=== PATIENT | female | born 1940 | race Caucasian/White ===

== ENCOUNTER 2018-08-27 07:55 | Outpatient (CLI) | payer MEDICARE ==
[2018-08-27] MEDS ORDERED: ADENOSINE 60 MG/20 ML VIAL ONE (10:52)
--- NOTE | 2018-08-27 13:23 | NM ---
CARDIAC SPECT: HISTORY: A 78-year-old female with chest pain, angina, coronary artery disease, hypertension, and diabetes. TECHNIQUE: A myocardial perfusion scan was performed using the single isotope one day protocol with technetium 9 9m sestamibi, and 10 millicuries was injected intravenously for the rest exam, followed by 28 millicu zane for the stress study. Pharmacologic stress with adenosine was monitored and interpreted by Dr. Benson. FINDINGS: Homogeneous tracer distribution is seen in the myocardial segments on stress and rest images without fixed or reversible defects. GATED SPECT LVEF: 71% WALL MOTION EXAM: Normal. IMPRESSION: Normal myocardial perfusion scan. POS: NANCY
== END 2018-08-27 07:56 | disposition home or self-care (01) ==
LOC: NM 07:55
PROVIDERS: ATTEND Family Medicine
DX: I20.9 Angina pectoris, unspecified (principal)
CPT/HCPCS: 78452; 93017; A9500; J0153

== ENCOUNTER 2019-03-26 06:03 | Day surgery (SDC) | payer MEDICARE ==
[2019-03-25 13:05] VITALS: BMI 28.1
[2019-03-26] MEDS ORDERED: Diazepam 5 MG TAB ONE (07:48)
[2019-03-26] MEDS ORDERED: Ondansetron PF 4 MG/2 ML Vial ONE (08:16)
[2019-03-26] MEDS ORDERED: Heparin 10,000 UNITS/1 ML VIAL ONE (08:16)
[2019-03-26] MEDS ORDERED: Verapamil 5 MG/2 ML VIAL ONE (08:16)
[2019-03-26] MEDS ORDERED: Nitroglycerin 100MG/250ML BOT 250 ML ONE (08:17)
[2019-03-26] MEDS ORDERED: Iopamidol 370 76% 100 ML VIAL ONE (08:41)
[2019-03-26] MEDS ORDERED: Fentanyl 100 MCG/2 ML VIAL ONE (09:02)
[2019-03-26] MEDS ORDERED: Midazolam HCl 2 mg/2 ml Vial ONE (09:02)
== END 2019-03-26 11:45 | disposition home or self-care (01) ==
LOC: CCL 06:03
PROVIDERS: ATTEND Internal Medicine Cardiovascular Disease
PROC: 4A023N7 Measurement of Cardiac Sampling and Pressure, Left Heart, Percutaneous Approach (ICD-10-PCS; principal; 2019-03-26)
PROC: B2111ZZ Fluoroscopy of Multiple Coronary Arteries using Low Osmolar Contrast (ICD-10-PCS; 2019-03-26)
DX: R07.89 Other chest pain (principal); E11.9 Type 2 diabetes mellitus without complications; I48.0 Paroxysmal atrial fibrillation; E07.9 Disorder of thyroid, unspecified; D68.9 Coagulation defect, unspecified; M79.604 Pain in right leg; Z79.82 Long term (current) use of aspirin; Z79.84 Long term (current) use of oral hypoglycemic drugs; Z79.899 Other long term (current) drug therapy
CPT/HCPCS: 93458; 99152; 99153; C1769; J1644; J2250; J2405; J3010; Q9967

== ENCOUNTER 2020-10-02 11:17 | Emergency (ER) | payer MEDICARE ==
--- NOTE | 2020-10-02 13:27 | CT ---
Exam: Head CT without contrast HISTORY: Fall. Pain. Dizziness and syncope. COMPARISON: none FINDINGS: Hemorrhage: No intraparenchymal hemorrhage or extra-axial hematoma. Brain parenchyma: Cortical anderson-white matter differentiation is preserved. No mass effect or midline shift. Basilar cisterns are patent. Ventricular system: Ventricles and sulci are patent and symmetric. Calvarium: Intact. Sinuses and mastoid air cells: Adequate aeration. IMPRESSION: No intracranial post traumatic sequelae.
[2020-10-02] MEDS ORDERED: Morphine 4 MG/ML VIAL ONE (13:53)
--- NOTE | 2020-10-02 14:55 | CT ---
CT CERVICAL SPINE PERFORMED WITHOUT CONTRAST ENHANCEMENT: Date: 10/02/2020 HISTORY: Neck pain status post fall. FINDINGS: The vertebral bodies are normal in height. Degenerative change is seen along the course of the spine. Disc narrowing is particularly pronounced at C5-6. The facets are in normal alignment. Bones appear demineralized. There are areas of lucency within several of the vertebral bodies. This is favored to be on the basis of osteoporosis rather than lytic bone lesion. At the C4-5 level, the canal is mildly stenotic and there is mild right-sided foraminal narrowing. No significant canal or foraminal stenosis in the other vertebral body levels. No CT evidence for fract ure. The lung apices are clear. IMPRESSION: No CT evidence of fracture of the cervical spine. POS: MAX
--- NOTE | 2020-10-02 15:25 | RAD ---
LEFT HUMERUS TWO VIEWS: History: Patient fell, humeral pain. FINDINGS: There is mild arthritic change of the AC and glenohumeral joints. There are no signs of fracture or d islocation. IMPRESSION: No evidence of fracture. POS: MAX
--- NOTE | 2020-10-02 15:30 | RAD ---
Exam:3 views left foot HISTORY: Pain. Fall. COMPARISON: None FINDINGS: There are degenerative changes of the first tarsometatarsal articulation as well as the fir st metatarsal phalangeal joint space. Diffuse bony demineralization. Fractures involving the base of the fifth metatarsal. No additional fracture, cortical irregularity or periosteal reaction. There is spurring of the plantar calcaneus aponeurosis insertion site. Limited Lisfranc alignment is difficult to assess. IMPRESSION: Fracture involving the proximal fifth metatarsal
--- NOTE | 2020-10-02 15:33 | RAD ---
LEFT KNEE 4 VIEWS: Date: 10/02/2020 HISTORY: Fall, left knee pain. FINDINGS/IMPRESSION: Degenerative changes are present. No acute fracture or dislocation is identified. POS: AH
--- NOTE | 2020-10-02 15:37 | RAD ---
LEFT SHOULDER THREE VIEWS: History: Patient fell, shoulder pain. FINDINGS: Some mild arthritic changes of the AC and glenohumeral joints. The bones are demineralized. No fractu re is identified. IMPRESSION: No acute injury. POS: MAX
--- NOTE | 2020-10-02 15:38 | RAD ---
LEFT ELBOW FOUR VIEWS: History: Elbow injury. FINDINGS: Some mild arthritic changes of the elbow. There are no signs of fracture, dislocation, or joint effus ion. IMPRESSION: No acute injury. POS: MAX
== END 2020-10-02 17:41 | disposition home or self-care (01) ==
LOC: ERS 11:17
DX: S06.0X0A Concussion without loss of consciousness, initial encounter (principal); S92.352A Displaced fracture of fifth metatarsal bone, left foot, initial encounter for closed fracture; S43.402A Unspecified sprain of left shoulder joint, initial encounter; F32.9 Major depressive disorder, single episode, unspecified; E11.9 Type 2 diabetes mellitus without complications; E78.5 Hyperlipidemia, unspecified; I10 Essential (primary) hypertension; Z79.899 Other long term (current) drug therapy; W18.30XA Fall on same level, unspecified, initial encounter
CPT/HCPCS: 70450; 72125; 90471; 93005; 96372; J2270

== ENCOUNTER 2023-02-27 08:19 | Inpatient (IN) | payer MEDICARE ==
[2023-02-27 11:47] VITALS: BMI 25.0
[2023-02-27] MEDS ORDERED: Morphine 2 MG/ML VIAL SLOW IVP PRN (12:50)
[2023-02-27] MEDS ORDERED: Ipratropium/Albuterol 3 ML NEB NEB PRN (12:50)
[2023-02-27] MEDS ORDERED: Ondansetron PF 4 MG/2 ML Vial IVP PRN (12:50)
[2023-02-27] MEDS ORDERED: Dextrose 5% in Water 1,000 ML IV PRN ×2 (12:50→14:30)
[2023-02-27] MEDS ORDERED: Dextrose 50% Abboject 50 ML SYRINGE SLOW IVP PRN ×2 (12:50→14:30)
[2023-02-27] MEDS: Acetaminophen 325 MG TAB PO SCH ×2 (13:27→18:18)
[2023-02-27] MEDS: Morphine 2 MG/ML VIAL SLOW IVP PRN ×2 (13:28→20:37)
[2023-02-27] MEDS ORDERED: CEFAZOLIN 2 GM in Sodium Chloride 0.9% 100 ML IVPB SCH (13:30)
[2023-02-27 13:48] LABS: Hemoglobin 8.7 g/dL (12.0-16.0); Mean Corpuscular HGB CONC 29.6 g/dL (32.0-36.0); Mean Corpuscular Hemoglobin 18.7 pg (27.0-31.0); Mean Corpuscular Volume 63.2 fl (78.0-98.0); Mean Platelet Volume 9.1 fL (7.4-10.4); Platelet Count 197 10x3/uL (130-400); RBC Distribution Width 16.6 % (11.5-14.5); Red Blood Cell (RBC) Count 4.62 mill/uL (4.20-5.40); White Blood Cell (WBC) Count 10.7 10x3/uL (4.8-10.8)
[2023-02-27 14:12] LABS: Anion Gap 12 mmol/L (10-20); BUN (Urea Nitrogen) 17 mg/dL (9.8-20.1); Calc. Creatinine Clearance 61 mL/min (70-130); Carbon Dioxide 26 mmol/L (23-31); Chloride 102 mmol/L (98-107); Estimated GFR 79; Glucose 109 mg/dL (83-110); Magnesium 1.8 mg/dL (1.6-2.6); Phosphorus 3.1 mg/dL (2.3-4.7); Potassium 3.5 mmol/L (3.5-5.1); Sodium 136 mmol/L (136-145)
[2023-02-27] MEDS ORDERED: Sodium Chloride 0.9% 100 ML ONE (14:17)
[2023-02-27] MEDS ORDERED: CEFAZOLIN 2 GM VIAL ONE (14:17)
[2023-02-27 14:18] LABS: INR-International Normal Ratio 1.1; Prothrombin Time 14.8 sec (12.0-14.7)
[2023-02-27 14:19] LABS: PTT 30.5 sec (22.9-36.1)
[2023-02-27] MEDS ORDERED: HumaLOG 300 UNITS/3 ML VIAL SC PRN (14:30)
[2023-02-27] MEDS ORDERED: fentaNYL 50 mcg/mL 1 mL Vial ONE ×3 (14:42→16:48)
[2023-02-27 14:44] LABS: #Eosinphils 0.2 thou/uL (0.0-0.7); #Lymphocytes 1.6 thou/uL (1.20-3.40); #Monocytes 0.8 thou/uL (0.11-0.59); #Neutrophils 8.1 thou/uL (1.40-6.50); %Basophils 0.3 % (0.0-1.0); %Eosinophils 1.6 % (0.0-10.0); %Lymphocytes 15.2 % (21.0-51.0); %Monocytes 7.6 % (0.0-10.0); %Neutrophils 75.3 % (42.0-75.0); Elliptocytes MODERATE= 6-15 cells (100X) (0-1/hpf); Eosinophils 1 % (0-10); Lymphocytes 7 % (21-51); MDiff Complete? YES; Microcytosis MODERATE=15-30 cells (100X) (0-5/hpf); Monocytes 7 % (0-10); Neutrophil 85 % (42-75); Platelet Morphology Comment Appears Adequate; Reflex for Review?? YES
[2023-02-27] MEDS ORDERED: Rocuronium Bromide 10 MG/ML (10ML VIAL) ONE (15:15)
[2023-02-27] MEDS ORDERED: PROPOFOL 200 MG/20 ML VIAL ONE (15:15)
[2023-02-27] MEDS ORDERED: ePHEDrine Sulfate 50 MG/10 ML VIAL ONE (15:15)
[2023-02-27] MEDS ORDERED: Lidocaine 1% PF 5 ML VIAL ONE (15:15)
[2023-02-27] MEDS ORDERED: Dexamethasone 20 MG/5 ML VIAL ONE (15:15)
[2023-02-27] MEDS ORDERED: Ondansetron PF 4 MG/2 ML Vial ONE (15:15)
[2023-02-27] MEDS: Acetaminophen/Codeine 30-300mg Tablet PO SCH ×2 (15:53→20:38)
[2023-02-27] MEDS: Gabapentin 100 MG CAP PO SCH ×2 (15:53→20:38)
[2023-02-27] MEDS: Sodium Chloride 0.9% 1,000 ML IV SCH ×2 (16:02→20:39)
[2023-02-27] MEDS ORDERED: SUGAMMADEX SODIUM 200 MG/2 ML VIAL ONE (16:22)
[2023-02-27] MEDS ORDERED: Promethazine HCl 25 MG/ML VIAL IM/IV PRN (16:45)
[2023-02-27] MEDS ORDERED: Ondansetron HCl/PF 4 MG/2 ML Vial IVP PRN (16:45)
[2023-02-27 18:36] LABS: Glucose 165 mg/dL (83-110)
[2023-02-27] MEDS: Senokot S 8.6-50 MG TAB PO SCH (20:38)
[2023-02-27] MEDS: CEFAZOLIN 2 GM in Sodium Chloride 0.9% 100 ML IVPB SCH (20:39)
[2023-02-27] MEDS ORDERED: Famotidine/PF 20 mg/2ml Vial SLOW IVP SCH (21:00)
[2023-02-27 21:25] LABS: Glucose 217 mg/dL (83-110)
[2023-02-28] MEDS: Acetaminophen 325 MG TAB PO SCH ×5 (00:57→23:35)
[2023-02-28] MEDS: Morphine 2 MG/ML VIAL SLOW IVP PRN (00:57)
[2023-02-28] MEDS: Acetaminophen/Codeine 30-300mg Tablet PO SCH ×5 (03:33→20:30)
[2023-02-28] MEDS: Sodium Chloride 0.9% 1,000 ML IV SCH (05:46)
[2023-02-28] MEDS: Levothyroxine Sodium 112 MCG TAB PO SCH (05:47)
[2023-02-28] MEDS: CEFAZOLIN 2 GM in Sodium Chloride 0.9% 100 ML IVPB SCH (05:47)
[2023-02-28] MEDS: Levothyroxine Sodium 25 MCG TAB PO SCH (05:47)
[2023-02-28 06:12] LABS: #Lymphocytes 1.3 thou/uL (1.20-3.40); #Monocytes 0.7 thou/uL (0.11-0.59); #Neutrophils 7.7 thou/uL (1.40-6.50); %Basophils 0.1 % (0.0-1.0); %Eosinophils 0.2 % (0.0-10.0); %Lymphocytes 12.9 % (21.0-51.0); %Monocytes 7.4 % (0.0-10.0); %Neutrophils 79.4 % (42.0-75.0); Hemoglobin 8.3 g/dL (12.0-16.0); Mean Corpuscular HGB CONC 30.1 g/dL (32.0-36.0); Mean Corpuscular Hemoglobin 19.2 pg (27.0-31.0); Mean Corpuscular Volume 63.7 fl (78.0-98.0); Platelet Count 191 10x3/uL (130-400); RBC Distribution Width 16.6 % (11.5-14.5); Red Blood Cell (RBC) Count 4.34 mill/uL (4.20-5.40); White Blood Cell (WBC) Count 9.8 10x3/uL (4.8-10.8)
[2023-02-28 06:17] LABS: INR-International Normal Ratio 1.1; PTT 31.6 sec (22.9-36.1); Prothrombin Time 14.9 sec (12.0-14.7)
[2023-02-28 06:28] LABS: Glucose 152 mg/dL (83-110)
[2023-02-28 06:31] LABS: Anion Gap 15 mmol/L (10-20); BUN (Urea Nitrogen) 14 mg/dL (9.8-20.1); Calc. Creatinine Clearance 57 mL/min (70-130); Calcium 8.9 mg/dL (7.8-10.44); Carbon Dioxide 25 mmol/L (23-31); Chloride 101 mmol/L (98-107); Estimated GFR 73; Glucose 153 mg/dL (83-110); Potassium 3.5 mmol/L (3.5-5.1); Sodium 137 mmol/L (136-145)
[2023-02-28] MEDS: Losartan 25 MG TAB PO SCH (09:00)
[2023-02-28] MEDS: Polyethylene Glycol 3350 17 GM Packet PO SCH (09:58)
[2023-02-28] MEDS: Senokot S 8.6-50 MG TAB PO SCH ×2 (09:58→20:30)
[2023-02-28] MEDS: Aspirin 81 mg Enteric Coated Tablet PO SCH ×2 (10:03→20:31)
[2023-02-28] MEDS: Sertraline 100 MG TAB PO SCH (10:04)
[2023-02-28 11:26] LABS: Glucose 168 mg/dL (83-110)
[2023-02-28] MEDS ORDERED: Potassium Chloride 20 MEQ TAB PO SCH (13:15)
[2023-02-28] MEDS ORDERED: Potassium Phosphate 30 MMOL in Sodium Chloride 0.9% 250 ML 250 ML IVPB SCH (13:15)
[2023-02-28] MEDS: Gabapentin 100 MG CAP PO SCH ×4 (15:39→20:15)
[2023-02-28 17:37] LABS: Glucose 194 mg/dL (83-110)
[2023-02-28] MEDS: Ferrous Sulfate 325 MG TAB PO SCH (18:20)
[2023-02-28] MEDS: Ascorbic Acid 500 mg Chewable Tablet PO SCH (20:31)
[2023-02-28 21:38] LABS: Glucose 210 mg/dL (83-110)
[2023-03-01] MEDS ORDERED: Ketorolac Tromethamine 30 MG/ML VIAL IVP PRN (00:50)
[2023-03-01] MEDS ORDERED: Morphine 2 MG/ML VIAL SLOW IVP PRN (00:50)
[2023-03-01] MEDS: Acetaminophen/Codeine 30-300mg Tablet PO SCH (03:14)
[2023-03-01] MEDS: Levothyroxine Sodium 25 MCG TAB PO SCH (05:28)
[2023-03-01] MEDS: Acetaminophen 325 MG TAB PO SCH (05:28)
[2023-03-01] MEDS: Levothyroxine Sodium 112 MCG TAB PO SCH (05:28)
[2023-03-01 07:54] LABS: Glucose 187 mg/dL (83-110)
[2023-03-01] MEDS ORDERED: traMADol HCl 50 MG TAB PO PRN (07:57)
[2023-03-01] MEDS ORDERED: Acetaminophen/Codeine 30-300mg Tablet PO SCH (08:00)
[2023-03-01] MEDS: Ferrous Sulfate 325 MG TAB PO SCH (09:43)
[2023-03-01] MEDS: Losartan 25 MG TAB PO SCH (09:43)
[2023-03-01] MEDS: Ascorbic Acid 500 mg Chewable Tablet PO SCH (09:43)
[2023-03-01] MEDS: Sertraline 100 MG TAB PO SCH (09:43)
[2023-03-01] MEDS: Aspirin 81 mg Enteric Coated Tablet PO SCH (09:43)
[2023-03-01] MEDS: Senokot S 8.6-50 MG TAB PO SCH (09:43)
[2023-03-01] MEDS: Polyethylene Glycol 3350 17 GM Packet PO SCH (09:43)
[2023-03-01] MEDS: Gabapentin 100 MG CAP PO SCH (09:44)
[2023-03-01 11:29] VITALS: BP 125/76; TEMP 97.8
[2023-03-01 13:00] LABS: Glucose 181 mg/dL (83-110)
== END 2023-03-01 13:45 | disposition swing bed (61) | DRG 481 ==
LOC: SJJU 11:28
PROVIDERS: ADMIT Surgery; ATTEND Surgery
PROC: 0QS604Z Reposition Right Upper Femur with Internal Fixation Device, Open Approach (ICD-10-PCS; principal; 2023-02-27)
DX: S72.091A Other fracture of head and neck of right femur, initial encounter for closed fracture (principal); D62 Acute posthemorrhagic anemia; F41.9 Anxiety disorder, unspecified; F32.A Depression, unspecified; G47.00 Insomnia, unspecified; E78.5 Hyperlipidemia, unspecified; I48.91 Unspecified atrial fibrillation; E89.0 Postprocedural hypothyroidism; W18.30XA Fall on same level, unspecified, initial encounter; Y93.H2 Activity, gardening and landscaping; Y92.007 Garden or yard of unspecified non-institutional (private) residence as the place of occurrence of the external cause; Z90.710 Acquired absence of both cervix and uterus; Z90.10 Acquired absence of unspecified breast and nipple; Z79.899 Other long term (current) drug therapy; Z79.890 Hormone replacement therapy; Z79.84 Long term (current) use of oral hypoglycemic drugs; Z79.82 Long term (current) use of aspirin
CPT/HCPCS: 36415; 36416; 72170; 82947; 83735; 84100; 85025; 85060; 85610; 85730; 86850; 86900; 86901; C1713; J1100; J2272; J2405; J2704; J3010; J3490; J7050; S0028

== ENCOUNTER 2023-05-27 09:33 | Inpatient (IN) | payer MEDICARE ==
[2023-05-27] MEDS ORDERED: Electrolyte Replacement Protocol 1 EACH IVPB ONE (13:03)
[2023-05-27] MEDS ORDERED: Electrolyte Replacement Protocol FS PRN (13:45)
[2023-05-27 14:35] LABS: Magnesium 1.8 mg/dL (1.6-2.6); Potassium 3.4 mmol/L (3.5-5.1)
[2023-05-27] MEDS: Diltiazem 125 MG in Sodium Chloride 0.9% 100 ML IVPB SCH (14:36)
[2023-05-27] MEDS ORDERED: Ondansetron ODT 4 MG TAB PO PRN (17:05)
[2023-05-27 18:00] LABS: INR-International Normal Ratio 1.2; Prothrombin Time 15.3 sec (12.0-14.7)
[2023-05-27 18:02] LABS: PTT 32.7 sec (22.9-36.1)
[2023-05-27 18:04] LABS: Phosphorus 2.6 mg/dL (2.3-4.7)
[2023-05-27] MEDS: clonazePAM 0.5 MG TAB PO SCH (20:30)
[2023-05-27] MEDS: Gabapentin 100 MG CAP PO SCH (20:30)
[2023-05-27] MEDS: Acetaminophen/Codeine 30-300mg Tablet PO PRN (20:30)
[2023-05-28 04:18] LABS: #Eosinphils 0.5 thou/uL (0.0-0.7); #Monocytes 0.5 thou/uL (0.11-0.59); #Neutrophils 3.5 thou/uL (1.40-6.50); %Basophils 0.5 % (0.0-1.0); %Eosinophils 7.8 % (0.0-10.0); %Lymphocytes 27.2 % (21.0-51.0); %Monocytes 8.3 % (0.0-10.0); Hemoglobin 7.8 g/dL (12.0-16.0); Mean Corpuscular HGB CONC 29.7 g/dL (32.0-36.0); Mean Corpuscular Hemoglobin 19.5 pg (27.0-31.0); Platelet Count 165 10x3/uL (130-400); RBC Distribution Width 21.1 % (11.5-14.5); Red Blood Cell (RBC) Count 3.99 mill/uL (4.20-5.40); White Blood Cell (WBC) Count 6.3 10x3/uL (4.8-10.8)
[2023-05-28 04:26] LABS: Mean Corpuscular Volume 65.9 fl (78.0-98.0)
[2023-05-28 04:47] LABS: ALT (SGPT) Less than 7 U/L (8-55); AST (SGOT) 13 U/L (5-34); Albumin 3.6 g/dL (3.4-4.8); Alkaline Phosphatase 64 U/L (40-110); Anion Gap 12 mmol/L (10-20); BUN (Urea Nitrogen) 13 mg/dL (9.8-20.1); Bilirubin, Total 0.2 mg/dL (0.2-1.2); Calc. Creatinine Clearance 73 mL/min (70-130); Carbon Dioxide 26 mmol/L (23-31); Cardiac Risk 2.9 (Less than 4.5); Chloride 100 mmol/L (98-107); Cholesterol 141 mg/dl (< 200 Desired); Estimated GFR 86; Globulin 2.5 g/dL (2.4-3.5); Glucose 139 mg/dL (83-110); HDL Cholesterol 49 mg/dL (>60 Neg Risk); LDL Cholesterol, Calculated 77 mg/dL; Magnesium 1.8 mg/dL (1.6-2.6); Potassium 3.3 mmol/L (3.5-5.1); Protein, Total 6.1 g/dL (5.8-8.1); Sodium 135 mmol/L (136-145); Triglycerides 76 mg/dL (Less than 150)
[2023-05-28] MEDS: Levothyroxine 150 MCG TAB PO SCH (06:05)
[2023-05-28] MEDS ORDERED: Potassium Chloride 20 MEQ TAB PO SCH (08:00)
[2023-05-28] MEDS ORDERED: Magnesium 2 GM/50 ML(in water) 2 GM in Premix Bag 1 BAG IVPB SCH (08:00)
[2023-05-28] MEDS ORDERED: Glucagon 1 MG/ML KIT IM PRN (09:25)
[2023-05-28] MEDS ORDERED: Dextrose 5% in Water 1,000 ML IV PRN (09:25)
[2023-05-28] MEDS ORDERED: Dextrose 50% Abboject 50 ML SYRINGE SLOW IVP PRN (09:25)
[2023-05-28] MEDS ORDERED: metFORMIN 500 MG TAB PO SCH (09:30)
[2023-05-28] MEDS: clonazePAM 0.5 MG TAB PO SCH ×2 (09:38→19:56)
[2023-05-28] MEDS: Famotidine 20 MG TAB PO SCH ×2 (09:39→19:55)
[2023-05-28] MEDS: Losartan 25 MG TAB PO SCH (09:39)
[2023-05-28] MEDS: Aspirin 81 mg Enteric Coated Tablet PO SCH (09:39)
[2023-05-28] MEDS: Gabapentin 100 MG CAP PO SCH ×3 (09:39→19:55)
[2023-05-28] MEDS: Sertraline 100 MG TAB PO SCH (09:40)
[2023-05-28] MEDS: Diltiazem 125 MG in Sodium Chloride 0.9% 100 ML IVPB SCH (09:41)
[2023-05-28] MEDS: metFORMIN 500 MG TAB PO SCH (17:46)
[2023-05-28] MEDS: Acetaminophen/Codeine 30-300mg Tablet PO PRN (19:59)
[2023-05-29] MEDS: Levothyroxine 150 MCG TAB PO SCH (04:59)
[2023-05-29 07:17] LABS: #Eosinphils 0.5 thou/uL (0.0-0.7); #Monocytes 0.4 thou/uL (0.11-0.59); #Neutrophils 4.2 thou/uL (1.40-6.50); %Basophils 0.5 % (0.0-1.0); %Lymphocytes 20.2 % (21.0-51.0); %Monocytes 6.6 % (0.0-10.0); %Neutrophils 64.4 % (42.0-75.0); Hemoglobin 8.4 g/dL (12.0-16.0); Mean Corpuscular HGB CONC 28.6 g/dL (32.0-36.0); Mean Corpuscular Hemoglobin 19.5 pg (27.0-31.0); Mean Corpuscular Volume 68.2 fl (78.0-98.0); Platelet Count 201 10x3/uL (130-400); RBC Distribution Width 21.2 % (11.5-14.5); Red Blood Cell (RBC) Count 4.31 mill/uL (4.20-5.40); White Blood Cell (WBC) Count 6.5 10x3/uL (4.8-10.8)
[2023-05-29 07:55] LABS: Ovalocytes SLIGHT = 2-5 cells HPF (0-1); Platelet Adequacy Comment Platelets Normal; Poikilocytosis SLIGHT = 6-15 cells HPF (0-5); Polychromasia SLIGHT = 2-3 cells HPF (0-2)
[2023-05-29 08:14] LABS: ALT (SGPT) 7 U/L (8-55); AST (SGOT) 10 U/L (5-34); Albumin 3.6 g/dL (3.4-4.8); Alkaline Phosphatase 64 U/L (40-110); Anion Gap 13 mmol/L (10-20); BUN (Urea Nitrogen) 14 mg/dL (9.8-20.1); Bilirubin, Total 0.3 mg/dL (0.2-1.2); Calc. Creatinine Clearance 71 mL/min (70-130); Calcium 9.3 mg/dL (7.8-10.44); Carbon Dioxide 26 mmol/L (23-31); Chloride 100 mmol/L (98-107); Estimated GFR 82; Globulin 2.6 g/dL (2.4-3.5); Glucose 134 mg/dL (83-110); Potassium 3.8 mmol/L (3.5-5.1); Protein, Total 6.2 g/dL (5.8-8.1); Sodium 135 mmol/L (136-145)
[2023-05-29] MEDS: metFORMIN 500 MG TAB PO SCH ×2 (09:54→16:15)
[2023-05-29] MEDS: Famotidine 20 MG TAB PO SCH ×2 (09:54→20:29)
[2023-05-29] MEDS: Gabapentin 100 MG CAP PO SCH ×3 (09:54→20:30)
[2023-05-29] MEDS: Sertraline 100 MG TAB PO SCH (09:54)
[2023-05-29] MEDS: clonazePAM 0.5 MG TAB PO SCH ×2 (09:54→20:30)
[2023-05-29] MEDS: Aspirin 81 mg Enteric Coated Tablet PO SCH (09:55)
[2023-05-29] MEDS: Losartan 25 MG TAB PO SCH (09:55)
[2023-05-29 17:44] LABS: Hemoglobin 9.9 g/dL (12.0-16.0)
[2023-05-29] MEDS: Acetaminophen/Codeine 30-300mg Tablet PO PRN (20:31)
[2023-05-30 05:20] LABS: #Eosinphils 0.4 thou/uL (0.0-0.7); #Monocytes 0.6 thou/uL (0.11-0.59); #Neutrophils 4.5 thou/uL (1.40-6.50); %Basophils 0.6 % (0.0-1.0); %Lymphocytes 23.3 % (21.0-51.0); %Monocytes 8.2 % (0.0-10.0); %Neutrophils 61.5 % (42.0-75.0); Hemoglobin 8.9 g/dL (12.0-16.0); Mean Corpuscular HGB CONC 29.6 g/dL (32.0-36.0); Mean Corpuscular Hemoglobin 20.1 pg (27.0-31.0); Mean Corpuscular Volume 67.9 fl (78.0-98.0); Platelet Count 176 10x3/uL (130-400); RBC Distribution Width 21.2 % (11.5-14.5); Red Blood Cell (RBC) Count 4.43 mill/uL (4.20-5.40); White Blood Cell (WBC) Count 7.2 10x3/uL (4.8-10.8)
[2023-05-30] MEDS: Levothyroxine 150 MCG TAB PO SCH (05:26)
[2023-05-30] MEDS: Acetaminophen/Codeine 30-300mg Tablet PO PRN ×2 (05:28→20:16)
[2023-05-30 05:37] LABS: Delete Auto Diff?? NO
[2023-05-30 05:48] LABS: ALT (SGPT) 7 U/L (8-55); AST (SGOT) 11 U/L (5-34); Albumin 3.6 g/dL (3.4-4.8); Alkaline Phosphatase 65 U/L (40-110); Anion Gap 13 mmol/L (10-20); BUN (Urea Nitrogen) 16 mg/dL (9.8-20.1); Bilirubin, Total 0.5 mg/dL (0.2-1.2); Calc. Creatinine Clearance 75 mL/min (70-130); Calcium 9.1 mg/dL (7.8-10.44); Carbon Dioxide 23 mmol/L (23-31); Chloride 101 mmol/L (98-107); Estimated GFR 86; Globulin 2.5 g/dL (2.4-3.5); Glucose 118 mg/dL (83-110); Protein, Total 6.1 g/dL (5.8-8.1); Sodium 133 mmol/L (136-145)
[2023-05-30] MEDS: Gabapentin 100 MG CAP PO SCH ×3 (09:02→20:13)
[2023-05-30] MEDS: clonazePAM 0.5 MG TAB PO SCH ×2 (09:04→20:13)
[2023-05-30] MEDS: Famotidine 20 MG TAB PO SCH ×2 (09:04→20:13)
[2023-05-30] MEDS: Losartan 25 MG TAB PO SCH (09:05)
[2023-05-30] MEDS: Aspirin 81 mg Enteric Coated Tablet PO SCH (09:05)
[2023-05-30] MEDS: metFORMIN 500 MG TAB PO SCH ×2 (09:05→17:02)
[2023-05-30] MEDS: Sertraline 100 MG TAB PO SCH (09:05)
[2023-05-30 10:29] LABS: Iron 85 ug/dL (50-170); Iron Binding Capacity, Total 310 mcg/dL (265-497)
[2023-05-30] MEDS: Ferrous Sulfate 325 MG TAB PO SCH (11:27)
[2023-05-30 13:14] LABS: Hemoglobin 10.5 g/dL (12.0-16.0)
[2023-05-30] MEDS: Acetaminophen 325 MG TAB PO PRN (13:45)
[2023-05-31 04:31] LABS: #Eosinphils 0.5 thou/uL (0.0-0.7); #Monocytes 0.6 thou/uL (0.11-0.59); #Neutrophils 4.2 thou/uL (1.40-6.50); %Basophils 0.6 % (0.0-1.0); %Eosinophils 6.4 % (0.0-10.0); %Lymphocytes 27.1 % (21.0-51.0); %Neutrophils 57.5 % (42.0-75.0); Hemoglobin 9.9 g/dL (12.0-16.0); Mean Corpuscular HGB CONC 29.8 g/dL (32.0-36.0); Mean Corpuscular Hemoglobin 20.5 pg (27.0-31.0); Mean Corpuscular Volume 68.7 fl (78.0-98.0); Platelet Count 189 10x3/uL (130-400); RBC Distribution Width 22.1 % (11.5-14.5); Red Blood Cell (RBC) Count 4.83 mill/uL (4.20-5.40); White Blood Cell (WBC) Count 7.2 10x3/uL (4.8-10.8)
[2023-05-31 04:54] LABS: ALT (SGPT) 7 U/L (8-55); AST (SGOT) 11 U/L (5-34); Albumin 3.7 g/dL (3.4-4.8); Alkaline Phosphatase 69 U/L (40-110); Anion Gap 14 mmol/L (10-20); BUN (Urea Nitrogen) 16 mg/dL (9.8-20.1); Bilirubin, Total 0.4 mg/dL (0.2-1.2); Calc. Creatinine Clearance 75 mL/min (70-130); Calcium 9.3 mg/dL (7.8-10.44); Carbon Dioxide 22 mmol/L (23-31); Chloride 104 mmol/L (98-107); Estimated GFR 86; Globulin 2.7 g/dL (2.4-3.5); Glucose 116 mg/dL (83-110); Potassium 3.9 mmol/L (3.5-5.1); Protein, Total 6.4 g/dL (5.8-8.1); Sodium 136 mmol/L (136-145)
[2023-05-31] MEDS: Levothyroxine 150 MCG TAB PO SCH (05:07)
[2023-05-31 05:14] LABS: Anisocytosis SLIGHT = 6-15 cells HPF (0-5); CellaVision Operator ID lab.abc; Hypochromia SLIGHT = 6-15 cells HPF (0-5); Microcytosis SLIGHT = 6-15 cells HPF (0-5); Platelet Adequacy Comment Platelets Normal; Polychromasia SLIGHT = 2-3 cells HPF (0-2)
[2023-05-31] MEDS ORDERED: Acetaminophen/Codeine 30-300mg Tablet PO SCH (07:59)
[2023-05-31] MEDS: metFORMIN 500 MG TAB PO SCH ×2 (08:34→16:06)
[2023-05-31] MEDS: Losartan 25 MG TAB PO SCH (08:36)
[2023-05-31] MEDS: Gabapentin 100 MG CAP PO SCH ×4 (08:36→20:09)
[2023-05-31] MEDS: Sertraline 100 MG TAB PO SCH (08:36)
[2023-05-31] MEDS: Aspirin 81 mg Enteric Coated Tablet PO SCH (08:36)
[2023-05-31] MEDS: Famotidine 20 MG TAB PO SCH ×2 (08:36→20:09)
[2023-05-31] MEDS: Apixaban 5 MG TAB PO SCH ×2 (08:36→20:09)
[2023-05-31] MEDS: clonazePAM 0.5 MG TAB PO SCH ×2 (09:18→20:09)
[2023-05-31 11:34] LABS: Phosphorus 3.5 mg/dL (2.3-4.7)
[2023-05-31] MEDS ORDERED: Magnesium 2 GM/50 ML(in water) 2 GM in Premix Bag 1 BAG IVPB SCH (12:15)
[2023-05-31] MEDS: Acetaminophen/Codeine 30-300mg Tablet PO PRN ×2 (16:09→22:41)
[2023-06-01] MEDS ORDERED: Ketorolac Tromethamine 30 MG/ML VIAL IVP SCH (01:00)
[2023-06-01 04:39] LABS: #Eosinphils 0.4 thou/uL (0.0-0.7); #Monocytes 0.6 thou/uL (0.11-0.59); #Neutrophils 4.5 thou/uL (1.40-6.50); %Basophils 0.4 % (0.0-1.0); %Eosinophils 5.7 % (0.0-10.0); %Lymphocytes 22.6 % (21.0-51.0); %Monocytes 8.4 % (0.0-10.0); %Neutrophils 62.3 % (42.0-75.0); Hemoglobin 10.5 g/dL (12.0-16.0); Mean Corpuscular HGB CONC 29.7 g/dL (32.0-36.0); Mean Corpuscular Hemoglobin 20.5 pg (27.0-31.0); Mean Corpuscular Volume 69.3 fl (78.0-98.0); Platelet Count 202 10x3/uL (130-400); RBC Distribution Width 22.5 % (11.5-14.5); Red Blood Cell (RBC) Count 5.11 mill/uL (4.20-5.40); White Blood Cell (WBC) Count 7.2 10x3/uL (4.8-10.8)
[2023-06-01 05:10] LABS: ALT (SGPT) 7 U/L (8-55); AST (SGOT) 12 U/L (5-34); Albumin 3.8 g/dL (3.4-4.8); Alkaline Phosphatase 68 U/L (40-110); Anion Gap 15 mmol/L (10-20); BUN (Urea Nitrogen) 13 mg/dL (9.8-20.1); Bilirubin, Total 0.6 mg/dL (0.2-1.2); Calc. Creatinine Clearance 71 mL/min (70-130); Calcium 9.1 mg/dL (7.8-10.44); Carbon Dioxide 21 mmol/L (23-31); Chloride 106 mmol/L (98-107); Estimated GFR 80; Globulin 2.6 g/dL (2.4-3.5); Glucose 115 mg/dL (83-110); Potassium 3.6 mmol/L (3.5-5.1); Protein, Total 6.4 g/dL (5.8-8.1); Sodium 138 mmol/L (136-145)
[2023-06-01] MEDS: Levothyroxine 150 MCG TAB PO SCH (06:06)
[2023-06-01 06:18] LABS: Anisocytosis SLIGHT = 6-15 cells HPF (0-5); CellaVision Operator ID LAB.JMM; Macrocytosis SLIGHT = 6-15 cells HPF (0-5); Platelet Adequacy Comment Platelets Normal; Polychromasia SLIGHT = 2-3 cells HPF (0-2)
[2023-06-01] MEDS: metFORMIN 500 MG TAB PO SCH ×2 (09:15→18:03)
[2023-06-01] MEDS: Famotidine 20 MG TAB PO SCH ×2 (09:16→20:29)
[2023-06-01] MEDS: Gabapentin 100 MG CAP PO SCH ×3 (09:16→20:27)
[2023-06-01] MEDS: Sertraline 100 MG TAB PO SCH (09:16)
[2023-06-01] MEDS: Ferrous Sulfate 325 MG TAB PO SCH (09:17)
[2023-06-01] MEDS: Apixaban 5 MG TAB PO SCH ×2 (09:17→20:32)
[2023-06-01] MEDS: Aspirin 81 mg Enteric Coated Tablet PO SCH (09:17)
[2023-06-01] MEDS: Losartan 25 MG TAB PO SCH (09:18)
[2023-06-01] MEDS: clonazePAM 0.5 MG TAB PO SCH ×2 (09:19→20:30)
[2023-06-01] MEDS: Acetaminophen/Codeine 30-300mg Tablet PO PRN ×2 (12:08→20:28)
[2023-06-02] MEDS: Acetaminophen 325 MG TAB PO PRN (00:48)
[2023-06-02 05:02] LABS: #Eosinphils 0.4 thou/uL (0.0-0.7); #Monocytes 0.5 thou/uL (0.11-0.59); #Neutrophils 3.8 thou/uL (1.40-6.50); %Basophils 0.3 % (0.0-1.0); %Eosinophils 6.7 % (0.0-10.0); %Lymphocytes 23.5 % (21.0-51.0); %Monocytes 8.1 % (0.0-10.0); %Neutrophils 60.9 % (42.0-75.0); Hemoglobin 10.1 g/dL (12.0-16.0); Mean Corpuscular HGB CONC 30.2 g/dL (32.0-36.0); Mean Corpuscular Hemoglobin 20.9 pg (27.0-31.0); Mean Corpuscular Volume 69.2 fl (78.0-98.0); Platelet Count 194 10x3/uL (130-400); RBC Distribution Width 22.9 % (11.5-14.5); Red Blood Cell (RBC) Count 4.83 mill/uL (4.20-5.40); White Blood Cell (WBC) Count 6.3 10x3/uL (4.8-10.8)
[2023-06-02 05:27] LABS: ALT (SGPT) 8 U/L (8-55); AST (SGOT) 14 U/L (5-34); Albumin 3.7 g/dL (3.4-4.8); Alkaline Phosphatase 71 U/L (40-110); Anion Gap 14 mmol/L (10-20); BUN (Urea Nitrogen) 13 mg/dL (9.8-20.1); Bilirubin, Total 0.7 mg/dL (0.2-1.2); Calc. Creatinine Clearance 73 mL/min (70-130); Calcium 9.3 mg/dL (7.8-10.44); Carbon Dioxide 24 mmol/L (23-31); Chloride 106 mmol/L (98-107); Estimated GFR 84; Globulin 2.4 g/dL (2.4-3.5); Glucose 116 mg/dL (83-110); Potassium 3.6 mmol/L (3.5-5.1); Protein, Total 6.1 g/dL (5.8-8.1); Sodium 140 mmol/L (136-145)
[2023-06-02] MEDS: Levothyroxine 150 MCG TAB PO SCH (06:09)
[2023-06-02 06:11] LABS: Anisocytosis SLIGHT = 6-15 cells HPF (0-5); CellaVision Operator ID lab.abc; Hypochromia SLIGHT = 6-15 cells HPF (0-5); Microcytosis SLIGHT = 6-15 cells HPF (0-5); Platelet Adequacy Comment Platelets Normal; Polychromasia SLIGHT = 2-3 cells HPF (0-2)
[2023-06-02] MEDS: Acetaminophen/Codeine 30-300mg Tablet PO PRN (06:13)
[2023-06-02] MEDS: Apixaban 5 MG TAB PO SCH (08:52)
[2023-06-02] MEDS: clonazePAM 0.5 MG TAB PO SCH (08:53)
[2023-06-02] MEDS: metFORMIN 500 MG TAB PO SCH (08:53)
[2023-06-02] MEDS: Aspirin 81 mg Enteric Coated Tablet PO SCH (08:53)
[2023-06-02] MEDS: Famotidine 20 MG TAB PO SCH (08:53)
[2023-06-02] MEDS: Gabapentin 100 MG CAP PO SCH (08:53)
[2023-06-02] MEDS: Sertraline 100 MG TAB PO SCH (08:53)
[2023-06-02] MEDS: Losartan 25 MG TAB PO SCH (08:54)
[2023-06-02 11:36] VITALS: BP 166/85; TEMP 97.1
[2023-06-02 14:29] VITALS: BMI 27.9
[2023-06-04 18:37] LABS: Lead-Whole Blood Less than 1.0 ug/dL (0.0-3.4)
== END 2023-06-02 15:26 | disposition home or self-care (01) | DRG 309 ==
LOC: IMCU/EMU 11:51 → 2NO 05-29 18:53
PROVIDERS: ADMIT Family Medicine; ATTEND Family Medicine
PROC: 30233N1 Transfusion of Nonautologous Red Blood Cells into Peripheral Vein, Percutaneous Approach (ICD-10-PCS; principal; 2023-05-29)
DX: I48.0 Paroxysmal atrial fibrillation (principal); I50.30 Unspecified diastolic (congestive) heart failure; E87.6 Hypokalemia; F41.9 Anxiety disorder, unspecified; E03.9 Hypothyroidism, unspecified; E11.9 Type 2 diabetes mellitus without complications; E78.5 Hyperlipidemia, unspecified; F32.A Depression, unspecified; D63.1 Anemia in chronic kidney disease; D50.9 Iron deficiency anemia, unspecified; I49.5 Sick sinus syndrome; I11.0 Hypertensive heart disease with heart failure; Z79.82 Long term (current) use of aspirin; Z79.899 Other long term (current) drug therapy; Z79.84 Long term (current) use of oral hypoglycemic drugs; Z85.3 Personal history of malignant neoplasm of breast; Z90.49 Acquired absence of other specified parts of digestive tract; Z98.890 Other specified postprocedural states
CPT/HCPCS: 36415; 36416; 36430; 80053; 80061; 82728; 83540; 83550; 83655; 83735; 84100; 84132; 84207; 84443; 85025; 85046; 85610; 85730; 86850; 86900; 86901; 93005; 93010; 93306; J1650; J1885; J3475; J3490; P9016

== ENCOUNTER 2023-06-29 13:02 | Inpatient (IN) | payer MEDICARE ==
[2023-06-29] MEDS ORDERED: Acetaminophen 325 MG TAB PO PRN (17:26)
[2023-06-29] MEDS ORDERED: Acetaminophen 650 MG Suppository PR PRN (17:26)
[2023-06-29] MEDS ORDERED: metFORMIN 500 MG TAB PO SCH (18:30)
[2023-06-29] MEDS ORDERED: clonazePAM 0.5 MG TAB PO PRN (19:36)
[2023-06-29] MEDS ORDERED: clonazePAM 0.5 MG TAB PO SCH (21:00)
[2023-06-29] MEDS ORDERED: clonazePAM 1 MG TAB PO SCH (21:00)
[2023-06-29] MEDS: Gabapentin 100 MG CAP PO SCH (21:11)
[2023-06-29] MEDS: clonazePAM 0.5 MG TAB PO SCH (21:12)
[2023-06-29] MEDS: Metoprolol Tartrate 25 MG TAB PO SCH (21:12)
[2023-06-29] MEDS: Apixaban 5 MG TAB PO SCH (21:12)
[2023-06-29] MEDS: Acetaminophen/Codeine 30-300mg Tablet PO PRN (23:43)
[2023-06-30] MEDS: Levothyroxine 150 MCG TAB PO SCH (05:01)
[2023-06-30 07:36] LABS: Anion Gap 13 mmol/L (10-20); BUN (Urea Nitrogen) 18 mg/dL (9.8-20.1); Calc. Creatinine Clearance 67 mL/min (70-130); Calcium 9.1 mg/dL (7.8-10.44); Carbon Dioxide 25 mmol/L (23-31); Chloride 101 mmol/L (98-107); Estimated GFR 76; Glucose 143 mg/dL (83-110); Potassium 3.1 mmol/L (3.5-5.1); Sodium 136 mmol/L (136-145)
[2023-06-30] MEDS ORDERED: Potassium Chloride 20 MEQ TAB PO SCH (08:45)
[2023-06-30] MEDS ORDERED: clonazePAM 0.5 MG TAB PO SCH (09:00)
[2023-06-30] MEDS ORDERED: clonazePAM 1 MG TAB PO SCH (09:00)
[2023-06-30] MEDS: clonazePAM 0.5 MG TAB PO SCH ×3 (10:33→20:48)
[2023-06-30] MEDS: metFORMIN 500 MG TAB PO SCH ×2 (10:34→16:45)
[2023-06-30] MEDS: Apixaban 5 MG TAB PO SCH ×2 (10:34→20:48)
[2023-06-30] MEDS: Gabapentin 100 MG CAP PO SCH ×3 (10:34→20:48)
[2023-06-30] MEDS: dilTIAZem CD 120 MG CAP PO SCH (10:35)
[2023-06-30] MEDS: Metoprolol Tartrate 25 MG TAB PO SCH ×2 (10:35→20:48)
[2023-06-30] MEDS: Acetaminophen/Codeine 30-300mg Tablet PO PRN ×3 (10:35→22:16)
[2023-06-30] MEDS: Sertraline 100 MG TAB PO SCH (10:36)
[2023-06-30 13:34] VITALS: BMI 27.1
[2023-07-01] MEDS: Acetaminophen/Codeine 30-300mg Tablet PO PRN ×2 (04:22→09:28)
[2023-07-01] MEDS: Levothyroxine 150 MCG TAB PO SCH (05:09)
[2023-07-01 05:44] LABS: Anion Gap 14 mmol/L (10-20); BUN (Urea Nitrogen) 19 mg/dL (9.8-20.1); Calc. Creatinine Clearance 70 mL/min (70-130); Calcium 9.2 mg/dL (7.8-10.44); Carbon Dioxide 24 mmol/L (23-31); Chloride 106 mmol/L (98-107); Estimated GFR 80; Glucose 140 mg/dL (83-110); Potassium 3.6 mmol/L (3.5-5.1); Sodium 140 mmol/L (136-145)
[2023-07-01] MEDS: metFORMIN 500 MG TAB PO SCH (09:27)
[2023-07-01] MEDS: Sertraline 100 MG TAB PO SCH (09:28)
[2023-07-01] MEDS: dilTIAZem CD 120 MG CAP PO SCH (09:28)
[2023-07-01] MEDS: Metoprolol Tartrate 25 MG TAB PO SCH (09:29)
[2023-07-01] MEDS: clonazePAM 0.5 MG TAB PO SCH (09:29)
[2023-07-01] MEDS: Apixaban 5 MG TAB PO SCH (09:29)
[2023-07-01] MEDS: Gabapentin 100 MG CAP PO SCH (09:29)
[2023-07-01 12:09] VITALS: BP 143/74; TEMP 97.5
== END 2023-07-01 12:34 | disposition home or self-care (01) | DRG 291 ==
LOC: 2NO 16:04
PROVIDERS: ADMIT Family Medicine; ATTEND Family Medicine
DX: I11.0 Hypertensive heart disease with heart failure (principal); I50.33 Acute on chronic diastolic (congestive) heart failure; F41.9 Anxiety disorder, unspecified; I48.91 Unspecified atrial fibrillation; E78.5 Hyperlipidemia, unspecified; F32.A Depression, unspecified; E89.0 Postprocedural hypothyroidism; G47.00 Insomnia, unspecified; E11.9 Type 2 diabetes mellitus without complications; Z79.899 Other long term (current) drug therapy; Z79.890 Hormone replacement therapy; Z79.84 Long term (current) use of oral hypoglycemic drugs; Z79.01 Long term (current) use of anticoagulants; Z98.49 Cataract extraction status, unspecified eye; Z85.3 Personal history of malignant neoplasm of breast; Z90.49 Acquired absence of other specified parts of digestive tract; Z90.13 Acquired absence of bilateral breasts and nipples; Z90.710 Acquired absence of both cervix and uterus; Z82.3 Family history of stroke
CPT/HCPCS: 36415; 36416; 80048; 97139

== ENCOUNTER 2023-07-10 08:30 | Inpatient (IN) | payer MEDICARE ==
[2023-07-10 08:23] VITALS: BMI 25.8
[2023-07-10 09:00] LABS: Bilirubin Neg (Negative); Blood, Urine Negative (Negative); Clarity Slightly Cloudy (Clear); Glucose, Urine (Dipstick) Normal (Negative); Ketone, Urine Negative (Negative); Leukocyte 100 (Negative); Nitrite Positive (Negative); Protein, Urine (Dipstick) Negative (Neg-Trace); Urobilinogen Normal mg/dL (Less than 2)
[2023-07-10 09:10] LABS: Hematocrit 36.5 % (34.9-44.5); Mean Corpuscular HGB CONC 30.1 g/dL (32.0-36.0); Mean Corpuscular Hemoglobin 21.2 pg (27.0-33.0); Mean Corpuscular Volume 70.2 fl (81.6-98.3); Platelet Count 281 10x3/uL (150-450); RBC Distribution Width 20.9 % (11.5-14.5); White Blood Cell (WBC) Count 6.3 10x3/uL (3.5-10.5)
[2023-07-10 09:21] LABS: INR-International Normal Ratio 1.2; PTT 31.8 sec (22.0-33.0); Prothrombin Time 12.9 sec (9.5-12.1)
[2023-07-10 09:27] LABS: ALT (SGPT) 7 U/L (8-55); AST (SGOT) 15 U/L (5-34); Albumin 4.7 g/dL (3.4-4.8); Alkaline Phosphatase 62 U/L (40-110); Anion Gap 18 mmol/L (10-20); BUN (Urea Nitrogen) 18 mg/dL (9.8-20.1); Bilirubin, Total 0.5 mg/dL (0.2-1.2); Calc. Creatinine Clearance 49 mL/min (70-130); Calcium 9.5 mg/dL (7.8-10.44); Carbon Dioxide 31 mmol/L (23-31); Chloride 96 mmol/L (98-107); Estimated GFR 57; Globulin 2.5 g/dL (2.4-3.5); Glucose 173 mg/dL (83-110); Potassium 3.1 mmol/L (3.5-5.1); Protein, Total 7.2 g/dL (5.8-8.1); Sodium 142 mmol/L (136-145)
[2023-07-16] MEDS ORDERED: Iopamidol 370 76% 100 ML VIAL ONE (08:57)
[2023-07-16] MEDS ORDERED: Protamine Sulfate 50 MG/5 ML VIAL ONE (10:37)
[2023-07-16] MEDS ORDERED: Heparin 10,000 UNITS/ 10 ML VIAL ONE (10:37)
[2023-07-16] MEDS ORDERED: CEFAZOLIN 1 GM VIAL ONE (10:37)
[2023-07-16] MEDS ORDERED: fentaNYL 50 mcg/mL 1 mL Vial ONE ×4 (12:02→15:35)
[2023-07-16] MEDS ORDERED: SUGAMMADEX SODIUM 200 MG/2 ML VIAL ONE (12:02)
[2023-07-16] MEDS ORDERED: Esmolol 100 MG/10 ML VIAL ONE (12:24)
[2023-07-16] MEDS ORDERED: Ondansetron PF 4 MG/2 ML Vial ONE (12:24)
[2023-07-16] MEDS ORDERED: Dexamethasone 20 MG/5 ML VIAL ONE (12:24)
[2023-07-16] MEDS ORDERED: PROPOFOL 200 MG/20 ML VIAL ONE (12:24)
[2023-07-16] MEDS ORDERED: Lidocaine 1% PF 5 ML VIAL ONE (12:24)
[2023-07-16] MEDS ORDERED: Rocuronium Bromide 10 MG/ML (10ML VIAL) ONE (12:24)
[2023-07-16] MEDS ORDERED: HYDROmorphone 0.5 MG/0.5 ML SYRINGE ONE ×2 (14:03→16:13)
[2023-07-16] MEDS ORDERED: Metoprolol Tartrate 5 MG/5 ML VIAL ONE (16:03)
== END 2023-07-16 17:10 | disposition home or self-care (01) | DRG 274 ==
LOC: SURG A 07-16 08:52
PROVIDERS: ADMIT Internal Medicine Cardiovascular Disease; ATTEND Internal Medicine Cardiovascular Disease
PROC: 02L73DK Occlusion of Left Atrial Appendage with Intraluminal Device, Percutaneous Approach (ICD-10-PCS; principal; 2023-07-16)
PROC: B24BZZ4 Ultrasonography of Heart with Aorta, Transesophageal (ICD-10-PCS; 2023-07-16)
DX: I48.19 Other persistent atrial fibrillation (principal); E11.9 Type 2 diabetes mellitus without complications; E03.9 Hypothyroidism, unspecified; Z79.899 Other long term (current) drug therapy; Z79.84 Long term (current) use of oral hypoglycemic drugs
CPT/HCPCS: 33340; 80053; 81003; 85027; 85347; 85610; 85730; 86850; 86900; 86901; 93306; 93312; C1759; C1760; C1894; J0690; J1100; J1170; J1644; J2405; J2704; J2720; J3010; Q9967

== ENCOUNTER 2024-01-23 14:57 | Inpatient (IN) | payer MEDICARE ==
[2024-01-23] MEDS ORDERED: Acetaminophen 325 MG TAB PO PRN (16:34)
[2024-01-23] MEDS ORDERED: Ondansetron ODT 4 MG TAB PO PRN (16:34)
[2024-01-23] MEDS ORDERED: Glucagon 1 MG/ML KIT IM PRN (17:28)
[2024-01-23] MEDS ORDERED: Dextrose 50% Abboject 50 ML SYRINGE SLOW IVP PRN (17:28)
[2024-01-23] MEDS ORDERED: HumaLOG 300 UNITS/3 ML VIAL SC PRN (17:28)
[2024-01-23] MEDS ORDERED: Dextrose 5% in Water 1,000 ML IV PRN (17:28)
[2024-01-23 17:50] VITALS: BMI 26.2
[2024-01-23] MEDS: Furosemide 40 MG TAB PO SCH (18:28)
[2024-01-23] MEDS: clonazePAM 1 MG TAB PO SCH (20:35)
[2024-01-23] MEDS: metFORMIN 500 MG TAB PO SCH (20:35)
[2024-01-23] MEDS: Metoprolol Tartrate 50 MG TAB PO SCH (20:35)
[2024-01-23 21:54] LABS: Troponin I Less than 0.010 ng/mL (< 0.028)
[2024-01-24 01:11] LABS: Troponin I Less than 0.010 ng/mL (< 0.028)
[2024-01-24 02:02] LABS: #Eosinphils 0.3 thou/uL (0.0-0.7); #Monocytes 0.6 thou/uL (0.11-0.59); #Neutrophils 5.5 thou/uL (1.40-6.50); %Basophils 0.5 % (0.0-1.0); %Eosinophils 3.6 % (0.0-10.0); %Lymphocytes 16.3 % (21.0-51.0); %Monocytes 7.2 % (0.0-10.0); %Neutrophils 71.9 % (42.0-75.0); Hematocrit 26.8 % (36.0-47.0); Hematocrit 27.1 % (36.0-47.0); Hemoglobin 7.8 g/dL (12.0-16.0); Mean Corpuscular HGB CONC 29.1 g/dL (32.0-36.0); Mean Corpuscular Hemoglobin 19.4 pg (27.0-31.0); Mean Corpuscular Volume 66.7 fl (78.0-98.0); Mean Platelet Volume 10.4 fL (7.4-10.4); Platelet Count 226 10x3/uL (130-400); RBC Distribution Width 20.3 % (11.5-14.5); Red Blood Cell (RBC) Count 4.02 mill/uL (4.20-5.40); White Blood Cell (WBC) Count 7.7 10x3/uL (4.8-10.8)
[2024-01-24 02:24] LABS: Phosphorus 2.9 mg/dL (2.3-4.7)
[2024-01-24 02:26] LABS: ALT (SGPT) 7 U/L (8-55); AST (SGOT) 12 U/L (5-34); Albumin 4.1 g/dL (3.4-4.8); Alkaline Phosphatase 51 U/L (40-110); Anion Gap 13 mmol/L (10-20); BUN (Urea Nitrogen) 23 mg/dL (9.8-20.1); Bilirubin, Total 0.7 mg/dL (0.2-1.2); Calc. Creatinine Clearance 52 mL/min (70-130); Carbon Dioxide 24 mmol/L (23-31); Chloride 107 mmol/L (98-107); Estimated GFR 61; Globulin 2.4 g/dL (2.4-3.5); Glucose 111 mg/dL (83-110); Iron 39 ug/dL (50-170); Iron Binding Capacity, Total 363 mcg/dL (265-497); Magnesium 1.6 mg/dL (1.6-2.6); Potassium 2.9 mmol/L (3.5-5.1); Protein, Total 6.5 g/dL (5.8-8.1); Sodium 141 mmol/L (136-145)
[2024-01-24 02:30] LABS: INR-International Normal Ratio 1.3; Prothrombin Time 15.9 sec (12.0-14.7)
[2024-01-24 02:43] LABS: Thyroid Stimulating Hormone 4.1945 uIU/mL (0.35-4.94)
[2024-01-24] MEDS: Potassium Chloride 20 MEQ TAB PO SCH ×2 (03:01→09:19)
[2024-01-24] MEDS: Magnesium 2 GM/50 ML(in water) 2 GM in Premix 1 BAG IVPB SCH (03:01)
[2024-01-24 03:06] LABS: Ferritin 9.51 ng/mL (10-291)
[2024-01-24] MEDS: Levothyroxine 150 MCG TAB PO SCH (05:52)
[2024-01-24] MEDS: Furosemide 40 MG TAB PO SCH (08:44)
[2024-01-24] MEDS: Sertraline 100 MG TAB PO SCH (08:45)
[2024-01-24] MEDS: Aspirin 81 mg Enteric Coated Tablet PO SCH (08:45)
[2024-01-24] MEDS: dilTIAZem CD 120 MG CAP PO SCH (08:45)
[2024-01-24] MEDS: clonazePAM 0.5 MG TAB PO SCH (08:46)
[2024-01-25 07:01] LABS: #Basophils 0.1 thou/uL (0.0-0.2); #Eosinphils 0.4 thou/uL (0.0-0.7); #Monocytes 0.6 thou/uL (0.11-0.59); #Neutrophils 6.2 thou/uL (1.40-6.50); %Basophils 0.6 % (0.0-1.0); %Eosinophils 4.2 % (0.0-10.0); %Lymphocytes 16.9 % (21.0-51.0); %Monocytes 6.7 % (0.0-10.0); %Neutrophils 71.1 % (42.0-75.0); Hematocrit 29.9 % (36.0-47.0); Hemoglobin 8.6 g/dL (12.0-16.0); Mean Corpuscular HGB CONC 28.8 g/dL (32.0-36.0); Mean Corpuscular Hemoglobin 19.5 pg (27.0-31.0); Platelet Count 299 10x3/uL (130-400); RBC Distribution Width 20.6 % (11.5-14.5); White Blood Cell (WBC) Count 8.8 10x3/uL (4.8-10.8)
[2024-01-25 07:12] LABS: ALT (SGPT) 7 U/L (8-55); AST (SGOT) 12 U/L (5-34); Albumin 4.3 g/dL (3.4-4.8); Alkaline Phosphatase 54 U/L (40-110); Anion Gap 7 mmol/L (10-20); BUN (Urea Nitrogen) 14 mg/dL (9.8-20.1); Bilirubin, Total 0.6 mg/dL (0.2-1.2); Calc. Creatinine Clearance 67 mL/min (70-130); Calcium 9.3 mg/dL (7.8-10.44); Carbon Dioxide 28 mmol/L (23-31); Chloride 105 mmol/L (98-107); Estimated GFR 81; Globulin 2.6 g/dL (2.4-3.5); Glucose 132 mg/dL (83-110); Magnesium 2.2 mg/dL (1.6-2.6); Potassium 3.2 mmol/L (3.5-5.1); Protein, Total 6.9 g/dL (5.8-8.1); Sodium 137 mmol/L (136-145)
[2024-01-25 08:07] VITALS: TEMP 97.2
[2024-01-25 08:57] LABS: Anisocytosis SLIGHT = 6-15 cells (100X) (0-5/hpf); Microcytosis MODERATE=15-30 cells (100X) (0-5/hpf); Platelet Adequacy Comment Appears Adequate
[2024-01-25 09:22] VITALS: BP 157/87
[2024-01-25] MEDS: Potassium Chloride 20 MEQ TAB PO SCH (09:55)
[2024-01-25] MEDS ORDERED: Potassium Chloride 20 MEQ TAB PO SCH (12:00)
== END 2024-01-25 10:54 | disposition home or self-care (01) | DRG 812 ==
LOC: 2SW 14:57
PROVIDERS: ADMIT Emergency Medicine; ATTEND Emergency Medicine
PROC: 30233N1 Transfusion of Nonautologous Red Blood Cells into Peripheral Vein, Percutaneous Approach (ICD-10-PCS; principal; 2024-01-23)
DX: D50.9 Iron deficiency anemia, unspecified (principal); D68.9 Coagulation defect, unspecified; J90 Pleural effusion, not elsewhere classified; I48.91 Unspecified atrial fibrillation; I10 Essential (primary) hypertension; I95.1 Orthostatic hypotension; E11.9 Type 2 diabetes mellitus without complications; F41.9 Anxiety disorder, unspecified; E03.9 Hypothyroidism, unspecified; Z79.84 Long term (current) use of oral hypoglycemic drugs; Z79.899 Other long term (current) drug therapy; Z79.82 Long term (current) use of aspirin; Z90.49 Acquired absence of other specified parts of digestive tract; Z90.710 Acquired absence of both cervix and uterus; D64.9 Anemia, unspecified; R07.9 Chest pain, unspecified; E78.5 Hyperlipidemia, unspecified
CPT/HCPCS: 36415; 36416; 36430; 71045; 71275; 80053; 82728; 83540; 83550; 83605; 83735; 83880; 84100; 84443; 84484; 85025; 85060; 85610; 85730; 86850; 86900; 86901; 93005; J3475; P9016

== ENCOUNTER 2024-06-11 08:53 | Emergency (ER) | payer MEDICARE ==
[2024-06-11 09:52] LABS: #Basophils 0.03 10x3/uL (0.0-0.2); %Basophils 0.4 % (0.0-1.0); %Eosinophils 2.8 % (0.0-10.0); %Lymphocytes 11.2 % (21.0-51.0); %Monocytes 4.2 % (0.0-10.0); %Neutrophils 81.1 % (42.0-75.0); Hematocrit 35.7 % (36.0-47.0); Hemoglobin 9.8 g/dL (12.0-16.0); Mean Corpuscular HGB CONC 27.5 g/dL (32.0-36.0); Mean Corpuscular Volume 72.7 fL (78.0-98.0); Mean Platelet Volume 10.8 fL (7.4-10.4); Platelet Count 224 10x3/uL (130-400); RBC Distribution Width 20.9 % (11.5-14.5); Red Blood Cell (RBC) Count 4.91 mill/uL (4.20-5.40)
[2024-06-11 09:55] LABS: ALT (SGPT) 8 U/L (8-55); AST (SGOT) 18 U/L (5-34); Albumin 4.2 g/dL (3.4-4.8); Alkaline Phosphatase 63 U/L (40-110); Anion Gap 13 mmol/L (10-20); BUN (Urea Nitrogen) 18 mg/dL (9.8-20.1); Bilirubin, Total 0.7 mg/dL (0.2-1.2); Calc. Creatinine Clearance 0 mL/min (70-130); Calcium 9.1 mg/dL (7.8-10.44); Carbon Dioxide 22 mmol/L (23-31); Chloride 108 mmol/L (98-107); Estimated GFR 75; Globulin 2.7 g/dL (2.4-3.5); Glucose 136 mg/dL (83-110); Potassium 3.7 mmol/L (3.5-5.1); Protein, Total 6.9 g/dL (5.8-8.1); Sodium 139 mmol/L (136-145)
[2024-06-11] MEDS ORDERED: Nitroglycerin 2% Ointment 1 INCH/1 GM Packet ONE ×2 (10:27→10:28)
[2024-06-11] MEDS ORDERED: Aspirin 325 MG TAB ONE (10:27)
[2024-06-11 10:33] LABS: Bilirubin Negative (Negative); Blood, Urine Negative (Negative); CAUTI Indications for Culture Alt mental st,lethar; Clarity Turbid (Clear); Glucose, Urine (Dipstick) Normal (Negative); Ketone, Urine Negative (Negative); Leukocyte 500 Leu/uL (Negative); Nitrite 2+ (Negative); Protein, Urine (Dipstick) 50 mg/dL (Neg-Trace); RBC/HPF 0-3 HPF (0-3); Specific Gravity, Urine 1.023 (1.002-1.036); Urobilinogen Normal mg/dL (Less than 2); WBC/HPF 21-50 HPF (0-3); pH, Urine 5.5 (5.0-9.0)
[2024-06-11 10:34] LABS: Bacteria/HPF 1+ HPF (None Seen); Urine Culture Reflex Yes Yes
[2024-06-11 10:36] LABS: CK (CPK) 21 U/L (29-168); Lipase 33 U/L (8-78)
[2024-06-11] MEDS ORDERED: Sodium Chloride 0.9% 100 ML ONE (10:53)
[2024-06-11] MEDS ORDERED: cefTRIAXone (ROCEPHIN) 2 GM VIAL ONE (10:53)
[2024-06-11 11:17] LABS: Troponin I Less than 0.010 ng/mL (< 0.028)
[2024-06-11 11:41] LABS: Influenza A by NAA Not Detected (NotDetected); Influenza B by NAA Not Detected (NotDetected); SARS-CoV-2 NAA Rapid Test Not Detected (NotDetected)
[2024-06-11] MEDS ORDERED: Sodium Ferric Gluconate 125 MG in Sodium Chloride 0.9% 100 ML IVPB SCH (15:00)
== END 2024-06-11 15:03 | disposition home or self-care (01) ==
LOC: ERS 08:53
DX: R53.1 Weakness (principal); N39.0 Urinary tract infection, site not specified; I48.91 Unspecified atrial fibrillation; E11.9 Type 2 diabetes mellitus without complications; I10 Essential (primary) hypertension; Z79.82 Long term (current) use of aspirin; Z79.84 Long term (current) use of oral hypoglycemic drugs
CPT/HCPCS: 0240U; 71045; 81001; 82550; 83605; 83690; 83880; 84484; 86850; 86900; 86901; 87040; 87077; 87086; 87186; 93005; J0696; J2916; J3490; 80053; 84443; 85025; 96365; 96367

== ENCOUNTER 2024-12-24 08:36 | Outpatient (CLI) | payer MEDICARE ==
[2024-12-24 10:46] LABS: #Basophils 0.04 10x3/uL (0.0-0.2); %Basophils 0.6 % (0.0-1.0); %Lymphocytes 17.1 % (21.0-51.0); %Monocytes 5.6 % (0.0-10.0); %Neutrophils 73.4 % (42.0-75.0); Hematocrit 29.8 % (36.0-47.0); Hemoglobin 8.8 g/dL (12.0-16.0); Mean Corpuscular HGB CONC 29.5 g/dL (32.0-36.0); Mean Corpuscular Hemoglobin 20.2 pg (27.0-31.0); Mean Corpuscular Volume 68.5 fL (78.0-98.0); Platelet Count 228 10x3/uL (130-400); Red Blood Cell (RBC) Count 4.35 mill/uL (4.20-5.40)
[2024-12-24 10:52] LABS: Anion Gap 14 mmol/L (10-20); BUN (Urea Nitrogen) 14 mg/dL (9.8-20.1); Calc. Creatinine Clearance 0 mL/min (70-130); Calcium 9.1 mg/dL (7.8-10.44); Carbon Dioxide 25 mmol/L (23-31); Chloride 106 mmol/L (98-107); Estimated GFR 87; Glucose 106 mg/dL (83-110); INR-International Normal Ratio 1.2; Potassium 3.6 mmol/L (3.5-5.1); Prothrombin Time 14.9 sec (12.0-14.7); Sodium 141 mmol/L (136-145)
[2024-12-24 10:53] LABS: PTT 33.2 sec (22.9-36.1)
== END 2024-12-24 08:37 | disposition home or self-care (01) ==
LOC: LABBT 08:36
PROVIDERS: ATTEND Internal Medicine Cardiovascular Disease
DX: Z01.812 Encounter for preprocedural laboratory examination (principal); I48.19 Other persistent atrial fibrillation
CPT/HCPCS: 80048; 85025; 85610; 85730

== ENCOUNTER 2024-12-29 06:12 | Day surgery (SDC) | payer MEDICARE ==
[2024-12-24 09:01] VITALS: BMI 24.2
[2024-12-29] MEDS ORDERED: Heparin 10,000 UNITS/ 10 ML VIAL ONE (06:51)
[2024-12-29] MEDS ORDERED: DOPamine 400 MG/D5W 250 ML 250 ML ONE (06:51)
[2024-12-29] MEDS ORDERED: Midazolam HCl 2 mg/2 ml Vial ONE (07:36)
[2024-12-29] MEDS ORDERED: PHENYLEPHRINE-NS 100 MCG/ML 10 ML SYRINGE ONE (08:02)
[2024-12-29] MEDS ORDERED: PROPOFOL 200 MG/20 ML VIAL ONE (08:02)
[2024-12-29] MEDS ORDERED: Ondansetron PF 4 MG/2 ML Vial ONE (08:02)
[2024-12-29] MEDS ORDERED: diphenhydrAMINE 50 MG/ML VIAL ONE (08:02)
[2024-12-29] MEDS ORDERED: Dexamethasone 20 MG/5 ML VIAL ONE (08:02)
[2024-12-29] MEDS ORDERED: Acetaminophen 325 MG TAB ONE (09:33)
== END 2024-12-29 12:35 | disposition home or self-care (01) ==
LOC: SDC 06:12
PROVIDERS: ATTEND Internal Medicine Cardiovascular Disease
PROC: 02583ZZ Destruction of Conduction Mechanism, Percutaneous Approach (ICD-10-PCS; principal; 2024-12-29)
PROC: 02K83ZZ Map Conduction Mechanism, Percutaneous Approach (ICD-10-PCS; 2024-12-29)
DX: I48.19 Other persistent atrial fibrillation (principal); E11.9 Type 2 diabetes mellitus without complications; E03.9 Hypothyroidism, unspecified; I50.30 Unspecified diastolic (congestive) heart failure; I34.0 Nonrheumatic mitral (valve) insufficiency; I27.20 Pulmonary hypertension, unspecified; Z79.82 Long term (current) use of aspirin; Z79.899 Other long term (current) drug therapy; Z79.890 Hormone replacement therapy; Z90.710 Acquired absence of both cervix and uterus; Z90.10 Acquired absence of unspecified breast and nipple; Z90.89 Acquired absence of other organs; Z95.0 Presence of cardiac pacemaker; Z79.01 Long term (current) use of anticoagulants; Z98.890 Other specified postprocedural states; Z95.5 Presence of coronary angioplasty implant and graft; Z95.818 Presence of other cardiac implants and grafts
CPT/HCPCS: 93613; 93650; C1760; C1894; J1100; J1200; J1265; J1644; J2250; J2405; J2704